=== PATIENT | male | born 1950 | race Caucasian/White ===

== ENCOUNTER 2020-03-02 16:47 | Emergency (ER) | payer OTHER ==
[~2020-03-02] VITALS: Ht 180.3 cm; Wt 99.8 kg
[2020-03-02 17:25] LABS: BASOPHILS ABSOLUTE AUTO 0.09 K/mm3 (0.00-0.23); BASOPHILS PERCENT AUTO 1 % (0-2); EOSINOPHILS PERCENT AUTO 5 % (0-6); Hematocrit 49.9 % (37.0-53.0); Hemoglobin 17.2 g/dL (13.5-17.5); IMMATURE GRAN ABSOLUTE AUTO 0.05 K/mm3 (0.00-0.10); IMMATURE GRAN PERCENT AUTO 1 % (0-1); LYMPHOCYTES ABSOLUTE AUTO 1.55 K/mm3 (0.84-5.20); LYMPHOCYTES PERCENT AUTO 19 % (21-46); MONOCYTES ABSOLUTE AUTO 0.62 K/mm3 (0.16-1.47); MONOCYTES PERCENT AUTO 7 % (4-13); Mean Corpuscular HGB 33.8 pg (26.0-34.0); Mean Corpuscular HGB Conc 34.5 g/dL (31.5-36.5); Mean Corpuscular Volume 98 fL (80-100); Mean Platelet Volume 8.7 fL (9.1-12.4); NEUTROPHILS ABSOLUTE AUTO 5.63 K/mm3 (1.96-9.15); NEUTROPHILS PERCENT AUTO 68 % (41-73); Platelet Count 243 K/mm3 (150-400); RDW Coefficient Variation 12.6 % (11.7-14.2); RDW Standard Deviation 45.6 fL (35.1-46.3); Red Blood Cell Count 5.09 M/mm3 (4.30-5.90); White Blood Cell Count 8.34 K/mm3 (4.00-11.30)
[2020-03-02 17:41] LABS: Alanine Aminotransfer (ALT/SGP 36 U/L (12-78); Albumin, Blood 3.8 g/dL (3.4-5.0); Alk Phos 71 U/L (50-136); Anion Gap 13 mmol/L (6-16); Aspartate Aminotrans (AST/SGOT 27 U/L (12-37); Bilirubin, Total 0.5 mg/dL (0.1-1.0); Blood Urea Nitrogen 13 mg/dL (8-24); Bun/Creatinine Ratio 13.2 (12.0-20.0); CO2, Blood 19 mmol/L (21-32); Calcium, Blood 8.8 mg/dL (8.5-10.1); Chloride, Blood 106 mmol/L (98-108); Creatinine, Blood 0.99 mg/dL (0.60-1.20); Globulin, Blood 3.9 g/dL (2.2-4.0); Glomerular Filtration Rate >60 (60-); Glucose, Blood 116 mg/dL (70-99); Potassium, Blood 3.7 mmol/L (3.5-5.5); Sodium, Blood 138 mmol/L (136-145); Total Protein, Blood 7.7 g/dL (6.4-8.2); Troponin I <0.015 ng/mL (0.000-0.040)
[2020-03-02] MEDS ORDERED: Prednisone20 MG PO (18:15)
== END 2020-03-02 18:55 | disposition home or self-care (01) ==
LOC: ER 16:47
PROVIDERS: Emergency Medicine
DX: R05 Cough (principal); R55 Syncope and collapse; V69.9XXA Occupant (driver) (passenger) of heavy transport vehicle injured in unspecified traffic accident, initial encounter
CPT/HCPCS: 71045; 80053; 83880; 84484; 85025; 93005; 93010; 99284-25

== ENCOUNTER 2020-06-27 07:42 | Day surgery (SDC) | payer OTHER ==
[~2020-06-27] VITALS: Ht 180.3 cm; Wt 96.1 kg
[~2020-06-27 07:42] MED LIST: IBUP200 PO; Loratadine10 MG PO; Prednisone20 MG PO
--- NOTE | 2020-06-27 08:43 | NUR ---
06/27/20 0843 Conner Adam ATTEMPTED IV IN RIGHT AND LEFT HAND AND BOTH BLEW WHEN FLUIDS STARTED. AMARIT STARTED IV IN LEFT FOREARM AND PATIENT TOLERATED WELL.
== END 2020-06-27 14:00 | disposition home or self-care (01) ==
LOC: ORSCSDS 07:42
PROVIDERS: Otolaryngology
PROC: 09BL8ZZ Excision of Nasal Turbinate, Via Natural or Artificial Opening Endoscopic (ICD-10-PCS; principal; 2020-06-27 09:00)
PROC: 099W8ZZ Drainage of Right Sphenoid Sinus, Via Natural or Artificial Opening Endoscopic (ICD-10-PCS; principal; 2020-06-27 09:00)
PROC: 099Q8ZZ Drainage of Right Maxillary Sinus, Via Natural or Artificial Opening Endoscopic (ICD-10-PCS; principal; 2020-06-27 09:00)
PROC: 099R8ZZ Drainage of Left Maxillary Sinus, Via Natural or Artificial Opening Endoscopic (ICD-10-PCS; principal; 2020-06-27 09:00)
PROC: 099X8ZZ Drainage of Left Sphenoid Sinus, Via Natural or Artificial Opening Endoscopic (ICD-10-PCS; principal; 2020-06-27 09:00)
PROC: 099V8ZZ Drainage of Left Ethmoid Sinus, Via Natural or Artificial Opening Endoscopic (ICD-10-PCS; principal; 2020-06-27 09:00)
PROC: 099T8ZZ Drainage of Left Frontal Sinus, Via Natural or Artificial Opening Endoscopic (ICD-10-PCS; principal; 2020-06-27 09:00)
PROC: 099U8ZZ Drainage of Right Ethmoid Sinus, Via Natural or Artificial Opening Endoscopic (ICD-10-PCS; principal; 2020-06-27 09:00)
DX: J32.4 Chronic pansinusitis (principal); J34.2 Deviated nasal septum; J34.3 Hypertrophy of nasal turbinates; J82 Pulmonary eosinophilia, not elsewhere classified; I10 Essential (primary) hypertension; K21.9 Gastro-esophageal reflux disease without esophagitis; E66.9 Obesity, unspecified; Z68.30 Body mass index [BMI] 30.0-30.9, adult
CPT/HCPCS: 88305; 88312; J1100; J1885; J2001; J2370; J2405; J2704; J3010; J7120

== ENCOUNTER 2023-07-30 16:46 | Inpatient (IN) | payer OTHER ==
[~2023-07-30] VITALS: Ht 180.3 cm; Wt 100.0 kg
[~2023-07-30 16:46] MED LIST changes: -Loratadine10 MG PO; +Loratadine10 MG PT
[2023-07-30 18:03] LABS: BASOPHILS ABSOLUTE AUTO 0.06 K/mm3 (0.00-0.23); BASOPHILS PERCENT AUTO 1 % (0-2); EOSINOPHILS PERCENT AUTO 1 % (0-6); Hematocrit 45.6 % (37.0-53.0); IMMATURE GRAN ABSOLUTE AUTO 0.03 K/mm3 (0.00-0.10); IMMATURE GRAN PERCENT AUTO 0 % (0-1); LYMPHOCYTES ABSOLUTE AUTO 1.41 K/mm3 (0.84-5.20); LYMPHOCYTES PERCENT AUTO 13 % (21-46); MONOCYTES ABSOLUTE AUTO 1.02 K/mm3 (0.16-1.47); MONOCYTES PERCENT AUTO 9 % (4-13); Mean Corpuscular HGB 35.5 pg (26.0-34.0); Mean Corpuscular HGB Conc 35.1 g/dL (31.5-36.5); Mean Corpuscular Volume 101 fL (80-100); Mean Platelet Volume 8.7 fL (9.1-12.4); NEUTROPHILS ABSOLUTE AUTO 8.35 K/mm3 (1.96-9.15); NEUTROPHILS PERCENT AUTO 76 % (41-73); Platelet Count 263 K/mm3 (150-400); RDW Coefficient Variation 13.2 % (11.7-14.2); RDW Standard Deviation 48.2 fL (35.1-46.3); Red Blood Cell Count 4.51 M/mm3 (4.30-5.90); White Blood Cell Count 10.97 K/mm3 (4.00-11.30)
[2023-07-30 18:42] LABS: CHOL/HDL RATIO 6.1; Cholesterol 209 mg/dL (50-200); HDL Cholesterol 34 mg/dL (>39); LDL/HDL RATIO 4.2; Low Density Lipoprotein Chol 142 mg/dL (0-110); Triglycerides 164 mg/dL (30-160); Very Low Density Lipoprot Chol 32 mg/dL (6-32)
[2023-07-30 19:45] LABS: Magnesium, Blood 2.7 mg/dL (1.6-2.4)
[2023-07-30 19:48] LABS: Albumin, Blood 3.4 g/dL (3.4-5.0); Albumin/Globulin Ratio 0.8 (0.8-1.8); Bilirubin, Total 1.6 mg/dL (0.1-1.0); Calcium, Blood 9.3 mg/dL (8.5-10.1); Globulin, Blood 4.5 g/dL (2.2-4.0); Total Protein, Blood 7.9 g/dL (6.4-8.2)
[2023-07-30] MEDS ORDERED: FLUTICASONE-SAL12 G1 INH (22:00)
[2023-07-30] MEDS ORDERED: ALBU2.5V5 INH (22:00)
[2023-07-30 23:04] VITALS: BP 166/76
[2023-07-31 04:06] VITALS: BP 146/70
--- NOTE | 2023-07-31 05:57 | NUR ---
SHIFT SUMMARY: NO ACUTE EVENTS SINCE ADMISSION FROM ER AT 2245 LAST NIGHT. A&O X 2, SPEECH SLURRED AND HAS POOR MEMORY. HAS L FACIAL DROOP, R EYE GAZE. 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 L FOOT WEAK PLANTAR- AND DORSIFLEXION, CANNOT LIFT LEG OFF BED. INCONTINENT OF B&B, ATTENDS IN PLACE. NO EVENTS ON TELEMETRY, LEONILA IN 50'S WHEN SLEEPING. DENIED PAIN. MRI SCREENING FORM IN FRONT OF CHART; SINCE PT IS POOR HISTORIAN, DAY SHIFT RN WILL NEED TO CONTACT HIS SISTER TO COMPLETE THE FORM. SLEPT WELL OVERNIGHT.
[2023-07-31 06:41] LABS: Hematocrit 40.4 % (37.0-53.0); Mean Corpuscular HGB 35.3 pg (26.0-34.0); Mean Corpuscular HGB Conc 34.7 g/dL (31.5-36.5); Mean Corpuscular Volume 102 fL (80-100); Mean Platelet Volume 8.6 fL (9.1-12.4); Platelet Count 207 K/mm3 (150-400); RDW Coefficient Variation 13.1 % (11.7-14.2); RDW Standard Deviation 48.1 fL (35.1-46.3); Red Blood Cell Count 3.97 M/mm3 (4.30-5.90); White Blood Cell Count 8.63 K/mm3 (4.00-11.30)
[2023-07-31 07:09] VITALS: BP 160/80
[2023-07-31 07:13] LABS: Bun/Creatinine Ratio 22.2 (12.0-20.0); Creatinine, Blood 0.81 mg/dL (0.60-1.20); Potassium, Blood 3.6 mmol/L (3.5-5.5)
--- NOTE | 2023-07-31 09:06 | NUR ---
NOTE: ATTEMPTED TO CALL SISTERCLIFTON, TO ASSIST WITH THE MRI SCREENING FORM. THE PHONE DID NOT RING AND WENT STRAIGHT TO VOICEMAIL. LEFT MESSAGE AND PHONE NUMBER.
--- NOTE | 2023-07-31 12:36 | NUR ---
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 DR. CONTRERAS NOTIFIED AND NO NEW ORDERS AT THIS TIME.
[2023-07-31 14:44] VITALS: BP 168/73
--- NOTE | 2023-07-31 18:20 | NUR ---
SHIFT SUMMARY PT AOX2, CONFUSED THROUGHOUT THE DAY. PT HAS HAD NO COMPLAINTS. AT TIMES ATTEMPTING TO SLIDE ONE OF HIS LEGS OUT OF THE BED BUT REDIRECTABLE. FAMILY WAS AT THE BS TODAY, PROVIDING FURTHER HISTORY. PT'S BP SLIGHTLY ELEVATED THIS AFTERNOON BUT DR. CONTRERAS WANTS TO MAINTAIN A HIGH BLOOD PRESSURE AT THIS TIME. HE HAS HAD NO COMPLAINTS OF N/V/D/CP. CALL LIGHT WITHIN REACH, BED IN THE LOWEST POSITION. WILL REPORT TO ONCOMING NURSE.
[2023-07-31 19:38] VITALS: BP 158/77
[2023-08-01 02:30] VITALS: BP 160/83
--- NOTE | 2023-08-01 06:13 | NUR ---
SHIFT SUMMARY: NO ACUTE EVENTS. A&O X 1, KNOWS , BUT THINKS HE IS AT HOME. RIGHT GAZE HAS IMPROVED SLIGHTLY. SPEECH IS SLURRED AND HE HAS L SIDE NEGLECT. NO EVENTS ON TELEMETRY, SR 60'S WITH 1ST DEGREE BLOCK. LUNG SOUNDS DIM THROUGHOUT. INCONTINENT, WEARING ATTENDS. LBM UNKNOWN; MAY NEED BOWEL MEDS BEFORE TRANSFERRING TO SNF FOR REHAB.
[2023-08-01 07:45] VITALS: BP 162/72
[2023-08-01 14:56] VITALS: BP 145/63
--- NOTE | 2023-08-01 18:09 | NUR ---
THE PATIENT WAS SLEEPING MOST OF THE SHIFT, AROUSABLE, BUT VERY SLEEPY. THE PATIENT'S FAMILY WAS IN THE ROOM OFF AND ON, THROUGHOUT THE DAY. THE PATIENT IS A&O TO SELF AND SOME SURROUNDINGS. THE PATIENT LEFT SIDE IS WEAK AND HE WAS ABLE TO MOVE HIS LEFT LEG ON COMMAND. THE PATIENT REFUSED LUNCH AND STATED THAT HE WOULD EAT DINNER. I WILL CONTINUE TO MONITOR HIM.
[2023-08-01 19:18] VITALS: BP 132/65
[2023-08-02 03:27] VITALS: BP 146/99
--- NOTE | 2023-08-02 05:24 | NUR ---
SHIFT SUMMARY NOC PT A/O TO SELF AND FAMILY. PLESANTLY CONFUSED AND COOPERATIVE WITH CARE. WHEN ATTEMPTING TO GIVE PT HS RX, PT WAS UNABLE TO SWALLOW PILL, AND RX WAS NOT GIVEN DUE TO HIGH ASPIRATION/CHOKING RISK. PT WILL NEED SECOND ST EVALUATION TO ASSESS PT SWALLOW REFLEX. PT HAS SEVERE L SIDE DEFICIT FROM ACUTE CVA AND WAS UNABLE TO SQUEEZE FINGERS AND LIFT LLE. PT HAS CONDOM CATHETER IN PLACE FOR INCONTINENCE. PT IS ON TELE RUNNING SINUS RHYTHM @ 80 BPM. PT IS CURRENTLY RESTING WITH BED IN LOWEST POSITION, AND CALL LIGHT WITHIN REACH.
[2023-08-02 06:09] LABS: HEMOGLOBIN A1C 5.4 % (4.8-5.6)
[2023-08-02 08:13] VITALS: BP 138/68
[2023-08-02 15:51] VITALS: BP 110/76
--- NOTE | 2023-08-02 17:35 | NUR ---
THE PATIENT WAS TALKING WITH THE FAMILY AT THE START OF THE SHIFT, WHEN HIS DOCTOR ARRIVED HE WAS VERY HARD TO WAKE UP AND NOT RESPONDING. THE DOCTOR ORDERED A CT OF HIS HEAD AND WHEN HE RETURNED HE WAS MORE AWKE AND I CALLED DOCTOR TO TALK WITH HIM. THE PATIENT NEEDS A SWOLLOW E-NAVJOT BADLY. THE PATIENT IS SLEEPING AT THIS TIME, I WILL CONTINUE TO MONITOR.
[2023-08-02 19:20] VITALS: BP 117/81
[2023-08-03 03:00] VITALS: BP 129/67
--- NOTE | 2023-08-03 04:51 | NUR ---
SHIFT SUMMARY NOC PT A/O TO SELF AND FAMILY. PLEASANTLY CONFUSED AND COOPERATIVE WITH CARE. NO ACUTE CHANGES TO REPORT. PT HAS 1L NS X 1 INFUSING @ 75 ML/HR FOR HYDRATION. PT HAS ST REEVALUATION TODAY TO DETERMINE IF NG TUBE PLACEMENT IS INDICATED. PT WAS UNABLE TO SWALLOW HS RX AND IT WAS NOT GIVEN FOR SAFETY CONCERNS. PT HAS BEEN INCONTINENT OF URINE X 2. PT ON TELE RUNNING SR 1DHB @ 69 BPM. PT IS CURRENTLY RESTING WITH BED IN LOWEST POSITION, AND CALL LIGHT WITHIN REACH.
[2023-08-03 05:17] LABS: BASOPHILS ABSOLUTE AUTO 0.07 K/mm3 (0.00-0.23); BASOPHILS PERCENT AUTO 1 % (0-2); EOSINOPHILS ABSOLUTE AUTO 0.32 K/mm3 (0.00-0.68); EOSINOPHILS PERCENT AUTO 3 % (0-6); Hematocrit 42.5 % (37.0-53.0); Hemoglobin 15.2 g/dL (13.5-17.5); IMMATURE GRAN ABSOLUTE AUTO 0.04 K/mm3 (0.00-0.10); IMMATURE GRAN PERCENT AUTO 0 % (0-1); LYMPHOCYTES ABSOLUTE AUTO 1.35 K/mm3 (0.84-5.20); LYMPHOCYTES PERCENT AUTO 14 % (21-46); MONOCYTES ABSOLUTE AUTO 0.91 K/mm3 (0.16-1.47); MONOCYTES PERCENT AUTO 10 % (4-13); Mean Corpuscular HGB 35.3 pg (26.0-34.0); Mean Corpuscular HGB Conc 35.8 g/dL (31.5-36.5); Mean Corpuscular Volume 99 fL (80-100); Mean Platelet Volume 9.2 fL (9.1-12.4); NEUTROPHILS ABSOLUTE AUTO 6.69 K/mm3 (1.96-9.15); NEUTROPHILS PERCENT AUTO 71 % (41-73); Platelet Count 256 K/mm3 (150-400); RDW Coefficient Variation 12.7 % (11.7-14.2); RDW Standard Deviation 45.9 fL (35.1-46.3); White Blood Cell Count 9.38 K/mm3 (4.00-11.30)
[2023-08-03 05:59] LABS: Bun/Creatinine Ratio 26.4 (12.0-20.0); Calcium, Blood 8.7 mg/dL (8.5-10.1); Creatinine, Blood 0.83 mg/dL (0.60-1.20); Potassium, Blood 3.4 mmol/L (3.5-5.5)
[2023-08-03 07:15] VITALS: BP 136/61
[2023-08-03 16:06] VITALS: BP 112/65
--- NOTE | 2023-08-03 17:43 | NUR ---
SHIFT SUMMARY TASHIA GRANT PLACED THIS SHIFT WITH NO COMPLICATIONS, X RAY VERIFICATION. TOLERATING 15ML/HOUR CONTINUOUS FEED. SUCTION SET UP AND FAMILY EDUCATED ON SAFE USE. FAMILY HAS PREFERENCE FOR PLACEMENT [facility], PASSED ON TO CHARGES TO PASS TO . HOB >30, ASSISTING WITH FREQUENT POSITIONING. FAMILY EDUCATED ON TUBE PLACEMENT, FORMULA FEEDINGS, ASPIRATION RISKS AND PRECAUTIONS, PRESSURE INJURY, STROKE, ANTICOAGULANTS. WILL CONTINUE TO MONITOR.
[2023-08-03 19:32] VITALS: BP 134/88
--- NOTE | 2023-08-04 00:36 | NUR ---
SPOKE WITH DR CONTRERAS REGARDING CXR TO VERIFY DOBHOFF TUBE PLACEMENT, HE REVIEWED THE CXR AND STATED THAT THE PLACEMENT LOOKS GOOD.
[2023-08-04 02:40] VITALS: BP 120/81
[2023-08-04 04:31] LABS: BASOPHILS ABSOLUTE AUTO 0.09 K/mm3 (0.00-0.23); BASOPHILS PERCENT AUTO 1 % (0-2); EOSINOPHILS ABSOLUTE AUTO 0.44 K/mm3 (0.00-0.68); EOSINOPHILS PERCENT AUTO 5 % (0-6); Hematocrit 43.4 % (37.0-53.0); Hemoglobin 15.4 g/dL (13.5-17.5); IMMATURE GRAN ABSOLUTE AUTO 0.05 K/mm3 (0.00-0.10); IMMATURE GRAN PERCENT AUTO 1 % (0-1); LYMPHOCYTES ABSOLUTE AUTO 1.37 K/mm3 (0.84-5.20); LYMPHOCYTES PERCENT AUTO 14 % (21-46); MONOCYTES ABSOLUTE AUTO 1.07 K/mm3 (0.16-1.47); MONOCYTES PERCENT AUTO 11 % (4-13); Mean Corpuscular HGB Conc 35.5 g/dL (31.5-36.5); Mean Corpuscular Volume 99 fL (80-100); Mean Platelet Volume 9.1 fL (9.1-12.4); NEUTROPHILS ABSOLUTE AUTO 6.63 K/mm3 (1.96-9.15); NEUTROPHILS PERCENT AUTO 69 % (41-73); Platelet Count 299 K/mm3 (150-400); RDW Coefficient Variation 12.6 % (11.7-14.2); RDW Standard Deviation 45.8 fL (35.1-46.3); White Blood Cell Count 9.65 K/mm3 (4.00-11.30)
[2023-08-04 05:01] LABS: Bun/Creatinine Ratio 33.5 (12.0-20.0); Calcium, Blood 9.2 mg/dL (8.5-10.1); Creatinine, Blood 0.9 mg/dL (0.60-1.20); Potassium, Blood 3.8 mmol/L (3.5-5.5)
[2023-08-04 07:14] VITALS: BP 119/72
[2023-08-04 15:53] VITALS: BP 135/70
--- NOTE | 2023-08-04 18:27 | NUR ---
SHIFT SUMMARY PT A&OX3 AND PLEASANT. PT VERY SLEEPY AND ONLY ALERT TO SELF AT START OF SHIFT. PT MORE ALERT AND ORIENTED DAY WENT ON. PT STILL HAS SIGNIFICANT LEFT SIDED DEFICITS BUT WAS ABLE TO LIFT HIS LEG SLIGHTLY TODAY. PT ABLE TO WORK WITH PHYSICAL THERAPY AND OT TODAY AND SAT UP AT EDGE OF BED. SPEACH THERAPY WORKED WITH PT ALSO. SEE ST NOTES. PT IS TO GET PEG TUBE PLACED TOMORROW. TUBE FEEDINGS SHOULD BE STOPPED AT [address] ROUSE AWARE AND WILL SEE PT AND FAMILY IN THE MORNING. FAMILY AT BEDSIDE T/O DAY. BED IN LOWEST POSITION AND CALL LIGHT IN REACH.
[2023-08-04 19:46] VITALS: BP 125/74
[2023-08-05] VITALS (10 sets, daily range): BP systolic 100–126; BP diastolic 57–86
--- NOTE | 2023-08-05 03:59 | NUR ---
SHIFT SUMMARY 72 YR M ADMITTED ON 07/30/23 FOR ACUTE CVA. FULL CODE. NO ACUTE CHANGES THIS SHIFT. TPN RATE INCREASED TO 81 ML/H @ 2330 AND STOPPED @ 0330. PT HAS SLEPT FOR MOST OF THIS SHIFT BUT IS ABLE TO COMMUNICATE WHEN HE IS AWAKE. HE IS A VERY PLEASANT MAN AND IS COOPERATIVE. HE IS INCONTINENT AT THIS TIME AND TOLERATES BRIEF CHANGES WELL. FAMILY WAS IN ROOM FOR FIRST PART OF THE SHIFT AND WILL BE BACK IN THE MORNING. PLAN IS FOR PEG TUBE PLACEMENT IN THE A.M.
[2023-08-05 05:13] LABS: BASOPHILS PERCENT AUTO 1 % (0-2); EOSINOPHILS PERCENT AUTO 6 % (0-6); Hematocrit 41.6 % (37.0-53.0); Hemoglobin 14.9 g/dL (13.5-17.5); IMMATURE GRAN ABSOLUTE AUTO 0.04 K/mm3 (0.00-0.10); IMMATURE GRAN PERCENT AUTO 0 % (0-1); LYMPHOCYTES ABSOLUTE AUTO 1.44 K/mm3 (0.84-5.20); LYMPHOCYTES PERCENT AUTO 14 % (21-46); MONOCYTES ABSOLUTE AUTO 1.06 K/mm3 (0.16-1.47); MONOCYTES PERCENT AUTO 11 % (4-13); Mean Corpuscular HGB 35.1 pg (26.0-34.0); Mean Corpuscular HGB Conc 35.8 g/dL (31.5-36.5); Mean Corpuscular Volume 98 fL (80-100); Mean Platelet Volume 9.5 fL (9.1-12.4); NEUTROPHILS ABSOLUTE AUTO 6.81 K/mm3 (1.96-9.15); NEUTROPHILS PERCENT AUTO 68 % (41-73); Platelet Count 320 K/mm3 (150-400); RDW Coefficient Variation 12.5 % (11.7-14.2); RDW Standard Deviation 45.1 fL (35.1-46.3); Red Blood Cell Count 4.24 M/mm3 (4.30-5.90); White Blood Cell Count 10.05 K/mm3 (4.00-11.30)
[2023-08-05 05:52] LABS: Bun/Creatinine Ratio 37.3 (12.0-20.0); Calcium, Blood 9.4 mg/dL (8.5-10.1); Creatinine, Blood 0.94 mg/dL (0.60-1.20); Potassium, Blood 3.6 mmol/L (3.5-5.5)
--- NOTE | 2023-08-05 11:49 | NUR ---
08/05/23 1149 Osmin Pack History, Chart, Medications and Allergies reviewed before start of procedure.MONITOR INTACT WITH CONTINUOUS PULSE OXIMETRY, CONTINUOUS END TITAL CO2, AND INTERMITTENT BLOOD PRESSURE.3-LEAD EKG REVIEWED WITH PHYSICIAN PRIOR TO START OF PROCEDURE.O2 VIA POM INTACT THROUGHOUT SEDATION/PROCEDURE.See Anesthesia record.
[2023-08-06 01:59] VITALS: BP 112/67
[2023-08-06 05:07] LABS: BASOPHILS ABSOLUTE AUTO 0.09 K/mm3 (0.00-0.23); BASOPHILS PERCENT AUTO 1 % (0-2); EOSINOPHILS ABSOLUTE AUTO 0.44 K/mm3 (0.00-0.68); EOSINOPHILS PERCENT AUTO 4 % (0-6); Hematocrit 43.3 % (37.0-53.0); Hemoglobin 15.2 g/dL (13.5-17.5); IMMATURE GRAN ABSOLUTE AUTO 0.05 K/mm3 (0.00-0.10); IMMATURE GRAN PERCENT AUTO 0 % (0-1); LYMPHOCYTES ABSOLUTE AUTO 1.32 K/mm3 (0.84-5.20); LYMPHOCYTES PERCENT AUTO 12 % (21-46); MONOCYTES ABSOLUTE AUTO 1.09 K/mm3 (0.16-1.47); MONOCYTES PERCENT AUTO 10 % (4-13); Mean Corpuscular HGB 35.1 pg (26.0-34.0); Mean Corpuscular HGB Conc 35.1 g/dL (31.5-36.5); Mean Corpuscular Volume 100 fL (80-100); Mean Platelet Volume 9.4 fL (9.1-12.4); NEUTROPHILS ABSOLUTE AUTO 8.29 K/mm3 (1.96-9.15); NEUTROPHILS PERCENT AUTO 74 % (41-73); Platelet Count 334 K/mm3 (150-400); RDW Coefficient Variation 12.5 % (11.7-14.2); RDW Standard Deviation 45.6 fL (35.1-46.3); Red Blood Cell Count 4.33 M/mm3 (4.30-5.90); White Blood Cell Count 11.28 K/mm3 (4.00-11.30)
[2023-08-06 05:35] LABS: Albumin, Blood 2.8 g/dL (3.4-5.0); Albumin/Globulin Ratio 0.5 (0.8-1.8); Calcium, Blood 9.4 mg/dL (8.5-10.1); Creatinine, Blood 1.03 mg/dL (0.60-1.20); Total Protein, Blood 8.8 g/dL (6.4-8.2)
--- NOTE | 2023-08-06 06:13 | NUR ---
PT LETHARGIC AT START OF SHIFT, AWAKENS TO VOICE. IV DILAUDID GIVEN PER REPORT FOR PAIN. PEG TUBE PLACED YESTERDAY. PT MORE AWAKE SHIFT WENT ON, ABLE TO ANSWER ORIENTATION QUESTIONS APPROPRIATELY. ABLE TO MAKE SOME NEEDS KNOWN, LIMITED MOBILITY OF L SIDE DUE TO CVA. R GAZE DEVIATION, L PO DROOP. FOAM BOOTIES PLACED TO BILATERAL LE TO PREVENT FOOT DROP. PT DENIES PAIN THIS AM. VSS PER PT TREND. PEG TUBE SITE WITH SCANT SS DRAINAGE, NO TF RUNNING AT THIS TIME. WATER FLUSHES PER PROVIDER ORDER. SR ON TELE.
[2023-08-06 07:29] VITALS: BP 113/70
[2023-08-06 15:19] VITALS: BP 112/57
[2023-08-06 19:51] VITALS: BP 126/65
--- NOTE | 2023-08-06 20:00 | NUR ---
SUMMARY- PT A/O X2, EXPRESIVE APHASIA, L SIDE NEGLECT. BEDREST, DEPENDANT IN ADL'S. USING CONDOM CATH. ROUTINE TURNS. SKIN REMAINS INTACT. PEG TUBE PLACED 10/10, ABD SOFT, MILDLY TENDER AT PEG SITE. BT NORMOACTIVE. STARTED BOLUS TUBE FEEDS, FIRST AT 1415 ONE BOX PLUS FLUSH, 2ND BOLUS AT 1800, ONE BOX PLUS FLUSH. HOB ELEVATED T/O FEEDS AND POST FEEDS. PT DENIES NAUSEA. MULT FAMILY IN T/O THE DAY INVOLVED IN CARE, PLAN FOR [facility]. PT WORKED WITH PT/OT/ST TODAY. SAT AT EDGE OF BED WITHA ASSIST. REPORTED TO ROSITA ORTEGA
[2023-08-07 04:00] VITALS: BP 122/63
[2023-08-07 04:41] LABS: BASOPHILS ABSOLUTE AUTO 0.09 K/mm3 (0.00-0.23); BASOPHILS PERCENT AUTO 1 % (0-2); EOSINOPHILS ABSOLUTE AUTO 0.52 K/mm3 (0.00-0.68); EOSINOPHILS PERCENT AUTO 5 % (0-6); Hematocrit 39.8 % (37.0-53.0); IMMATURE GRAN ABSOLUTE AUTO 0.07 K/mm3 (0.00-0.10); IMMATURE GRAN PERCENT AUTO 1 % (0-1); LYMPHOCYTES ABSOLUTE AUTO 1.56 K/mm3 (0.84-5.20); LYMPHOCYTES PERCENT AUTO 15 % (21-46); MONOCYTES ABSOLUTE AUTO 1.15 K/mm3 (0.16-1.47); MONOCYTES PERCENT AUTO 11 % (4-13); Mean Corpuscular HGB Conc 35.2 g/dL (31.5-36.5); Mean Corpuscular Volume 100 fL (80-100); Mean Platelet Volume 9.3 fL (9.1-12.4); NEUTROPHILS PERCENT AUTO 67 % (41-73); Platelet Count 319 K/mm3 (150-400); RDW Coefficient Variation 12.4 % (11.7-14.2); RDW Standard Deviation 45.3 fL (35.1-46.3); White Blood Cell Count 10.39 K/mm3 (4.00-11.30)
--- NOTE | 2023-08-07 05:03 | NUR ---
SHIFT SUMMARY A/OX2-3, EXPRESSIVE APHASIA, SLOW TO RESPOND. LEFT SIDE HEMIPLEGIA/NEGLECT. BEDREST, DEPENDENT IN ADL'S. CONDOM CATH OVERNIGHT, ROUTINE TURNS, SKIN REMAINS INTACT. PEG TUBE WAS PLACED 08/05 TUBE FEEDING STARTED YESTERDAY VIA BOLUS. ONE FEEDING THIS SHIFT ONLY TWO BOLUS FEEDINGS GIVEN DURING DAY SHIFT. 240 ML OF FEED OVER 15 MINUTES WITH 100 ML WATER FLUSH BEFORE AND AFTER. TOLERATED WELL. PT DENIED NAUSEA OR DISCOMFORT.
[2023-08-07 05:14] LABS: Bun/Creatinine Ratio 38.8 (12.0-20.0); Creatinine, Blood 0.95 mg/dL (0.60-1.20)
[2023-08-07 07:12] VITALS: BP 101/66
[2023-08-07 15:40] VITALS: BP 100/61
--- NOTE | 2023-08-07 19:45 | NUR ---
NOTE ALERT AND ORIENTED X2. FAMILY HAVE CONSULTED AN CUP TRIMMING MACHINE OPERATOR FOR POWER OF HEALTH/FINANCE PAPER WORK. PT UP TO RECLINER WITH CEILING LIDT. TOLERATED WELL. SAT UP IN RECLINER FOR 2 HOURS. THEN HE STARTED SCOOTCHING HIMSELF OUT. RETURNED TO BED WITH LIFT. CONDOM CATHETER ON DRAINING RAHEEM URINE. NO BM. PASSING FLATUS. PG TUBE CARE AND DRESSING CHANGED. SPLIT SPONGE 1 LAYER USED. BOLUS FEEDING OF JEVITY 1.5-355 ML/100ML OF WATER FOR 1200 AND 1800. BOLUS BY GRAVITY FEEDING HE WILL DEVELOP HICCUPS ABOUT HALF WAY THROUGH. NO GASTRIC RESIDUALS NOTED FOR 1200 OR 1800 BOLUSES. PT DENIED PAIN OR DISCOMFORT. PLACED A MAHMOOD BOOT ON HIS LEFT FOOT WITH P/T HELP TO PREVENT FOOT DROP. PILLOW UNDER HIS LEFT KNEE TO PREVENT HYPER EXTENDING HIS KNEE. HOB 30 DEGREES OR HIGHER FOR ASPIRATION PRECAUTIONS. WHILE UP IN RECLINER PT SET UP FOR BRUSHING HIS TEETH. HE WAS ABLE TO DO HIS OWN BRUSHING LEFT AND RIGHT SIDE OF HIS MOUTH. CONTINUE POC.
[2023-08-07 20:00] VITALS: BP 123/75
[2023-08-08 01:55] VITALS: BP 115/71
--- NOTE | 2023-08-08 03:39 | NUR ---
SHIFT SUMMARY. SHIFT HAS BEEN MOSTLY UNREMARKABLE. PT HAS BEEN PLEASANT, COOPERATIVE WITH CARE. SOMEWHAT FRUSTRATED WITH CURRENT SITUATION AND CONDITION LEADING TO ADMISSION. DISCUSSION WITH FAMILY REGARDING APPREHENSION WITH PRESUMED [place] PLACEMENT. REASSURED WITH PERSONAL ANECDOTE ON [place] QUALITY AND EDUCATED ON FACILITY. FAMILY AND PT FELT REASSURED BY THIS. PT HAS CONTINUED TO SAT WELL ON ROOM AIR. NO COMPLAINTS OF PAIN. DOES NOT USE CALL LIGHT THUS FAR DESPITE EDUCATION. ABLE TO MAKE NEEDS KNOWN. BEDREST AND NPO AT THIS TIME. 2100 MEDICATIONS GIVEN WITHOUT DIFFICULTY THROUGH PEG TUBE. BED LOCKED IN LOWEST POSITION.
[2023-08-08 05:37] LABS: BASOPHILS ABSOLUTE AUTO 0.12 K/mm3 (0.00-0.23); BASOPHILS PERCENT AUTO 1 % (0-2); EOSINOPHILS ABSOLUTE AUTO 0.81 K/mm3 (0.00-0.68); EOSINOPHILS PERCENT AUTO 7 % (0-6); Hemoglobin 14.5 g/dL (13.5-17.5); IMMATURE GRAN ABSOLUTE AUTO 0.08 K/mm3 (0.00-0.10); IMMATURE GRAN PERCENT AUTO 1 % (0-1); LYMPHOCYTES ABSOLUTE AUTO 1.98 K/mm3 (0.84-5.20); LYMPHOCYTES PERCENT AUTO 17 % (21-46); MONOCYTES ABSOLUTE AUTO 1.12 K/mm3 (0.16-1.47); MONOCYTES PERCENT AUTO 10 % (4-13); Mean Corpuscular HGB 35.2 pg (26.0-34.0); Mean Corpuscular HGB Conc 35.4 g/dL (31.5-36.5); Mean Corpuscular Volume 100 fL (80-100); Mean Platelet Volume 9.4 fL (9.1-12.4); NEUTROPHILS ABSOLUTE AUTO 7.36 K/mm3 (1.96-9.15); NEUTROPHILS PERCENT AUTO 64 % (41-73); Platelet Count 350 K/mm3 (150-400); RDW Coefficient Variation 12.6 % (11.7-14.2); RDW Standard Deviation 45.6 fL (35.1-46.3); Red Blood Cell Count 4.12 M/mm3 (4.30-5.90); White Blood Cell Count 11.47 K/mm3 (4.00-11.30)
[2023-08-08 06:17] LABS: Bun/Creatinine Ratio 32.5 (12.0-20.0); Calcium, Blood 9.2 mg/dL (8.5-10.1); Creatinine, Blood 0.92 mg/dL (0.60-1.20)
[2023-08-08 07:58] VITALS: BP 120/65
--- NOTE | 2023-08-08 13:30 | NUR ---
Been speaking to his daughter the past few days. Review of his needs and his fainaces and the struggles they have in making a plan for his care. their are fianacial concerns. Pt worked with pt today and tired no overt pain or dyspnea. Pt complains of a headache and increased fatigue from therpay. Will continue to support daughter and monitor his symptoms.
--- NOTE | 2023-08-08 14:33 | NUR ---
ATTEMPTED BOLUS TUBE FEEDING AT 1420. CHECKED RESIDUAL, FOUND TO HAVE 240 ML. REINSTILLED RESIDUAL AND GAVE 40 ML WATER FLUSH TO CLEAR TUBE. EDUCATED FAMILY ABOUT RATIONALE FOR THIS, VERBALIZED UNDERSTANDING. LEFT MESSAGE WITH TECHNICAL TRAINING SPECIALIST OFFICE.
[2023-08-08 16:53] LABS: Source, Urine Condom Cath
[2023-08-08 17:02] LABS: Appearance, Urine Clear (Clear); Blood, Urine Neg (Neg); Color, Urine Amber (P-Yellow); Glucose Qualitative, Urine Neg (Neg); Ketones, Urine Neg (Neg); Leukocyte Esterase, Urine Neg (Neg); Nitrite, Urine Neg (Neg); Protein, Urine 1+ (Neg); Specific Gravity, Urine 1.015 (1.003-1.022); Urobilinogen, Urine 4+ (Normal)
[2023-08-08 17:05] VITALS: BP 114/70
[2023-08-08 17:49] LABS: Bilirubin, Urine 1+ (Neg)
[2023-08-08 19:25] VITALS: BP 141/69
--- NOTE | 2023-08-08 19:58 | NUR ---
SHIFT SUMMARY: TF RESIDUAL > 200 ML BEFORE NOON FEEDING; RE-INSTILLED AND HELD NOON FEEDING, LEFT MESSAGE FOR CARE COORDINATION MANAGER. TF RESIDUAL BEFORE 1600 WAS 80 ML, RE-INSTILLED AND GAVE SCHEDULED FEEDING. APPROX 1 HOUR LATER, PATIENT VOMITED WHAT APPEARED TO BE ALL OR MOST OF THE 1600 FEEDING. ATTEMPTED TO CONTACT HOSPITALIST BLANKET CUTTER HAND BUT NO ANSWER, DID NOT LEAVE VM; ENDORSED TO ONCOMING RN AND INCOMING INSPECTOR Mina TODD. PT COUGHED FOR SEVERAL MINUTES AFTER BUT COUGHING RESOLVED SPONTANEOUSLY. LETHARGIC AT START OF SHIFT, BUT AFTER NAPPING THIS AFTERNOON WAS MORE ALERT THIS EVENING. TELEMETRY D/C'D. FINALLY HAD 2 BM'S THIS SHIFT, ONE LARGE AND ONE SMALL, VERY LOOSE. URINE IS RAHEEM IN COLOR AND HAS BRIAN SEDIMENT IN COLLECTION BAG; UA SENT, SHOWS ELEVATED BILIRUBIN. FAMILY AT BEDSIDE ALL DAY. THE HOPEFUL PLAN IS D/C TO [facility] FOR REHAB ON FRIDAY.
--- NOTE | 2023-08-08 20:25 | NUR ---
CALLED HOSPITALIST WILEY TO REQUEST ZOFRAN PRN DUE TO PT VOMITING AFTER TUBE FEEDING EARLY THIS MORNING. ACQUIRED AND ENTERED ORDER FROM WILEY. NOTIFICATION UPON ENTERING ORDER THAT THERE WAS A CONTRAINDICATION FOR QT PROLONGING AGENTS. CALLED TO DISCUSS WITH PHARMACY. BRIEFLY DISCUSSED MED AND HEALTH HX WITH PHARMACIST. NO NEED FOR CONCERN AT THIS TIME, SAFE TO ADMINISTER.
[2023-08-09 02:31] VITALS: BP 118/68
--- NOTE | 2023-08-09 03:50 | NUR ---
SHIFT SUMMARY. SHIFT HAS BEEN MOSTLY UNREMARKABLE. PER SHIFT REPORT, PT VOMITED A LARGE UNMEASURED AMOUNT OF EMESIS RIGHT BEFORE SHIFT CHANGE AND RIGHT AFTER A TUBE FEEDING. HELD FINAL TUBE FEEDING OF DAY DUE TO THIS. CHECKED RESIDUAL FLUID BEFORE ADMINISTERING 2100 MEDICATIONS AND WAS ONLY ABLE TO WITHDRAW ~150 MLS, ADMINISTERED SCHEDULED 2100 MEDICATIONS ALONG WITH IV ZOFRAN AND PT HASNOT HAD ANY NAUSEA OR VOMITING SINCE. PT HAS SLEPT COMFORTABLY THROUGH MOST OF NIGHT AFTER REPORTED BUSY DAY ON DAY SHIFT YESTERDAY. PT REMAINS SOMEWHAT WITHDRAWN BUT FAMILY IS AT BEDSIDE MORE OFTEN THAN NOT WHICH HELPS TO LIFT SPIRITS. DOES NOT USE CALL LIGHT DESPITE EDUCATION BUT IS ABLE TO MAKE NEEDS KNOWN. CONDOM CATH IN PLACE AND FUNCTIONING WELL. NO BM THUS FAR THIS SHIFT. BED LOCKED IN LOWEST POSITION. CALL LIGHT LEFT WITHIN REACH.
[2023-08-09 04:45] LABS: BASOPHILS ABSOLUTE AUTO 0.11 K/mm3 (0.00-0.23); BASOPHILS PERCENT AUTO 1 % (0-2); EOSINOPHILS ABSOLUTE AUTO 0.74 K/mm3 (0.00-0.68); EOSINOPHILS PERCENT AUTO 7 % (0-6); Hematocrit 38.7 % (37.0-53.0); Hemoglobin 13.7 g/dL (13.5-17.5); IMMATURE GRAN ABSOLUTE AUTO 0.09 K/mm3 (0.00-0.10); IMMATURE GRAN PERCENT AUTO 1 % (0-1); LYMPHOCYTES ABSOLUTE AUTO 1.64 K/mm3 (0.84-5.20); LYMPHOCYTES PERCENT AUTO 16 % (21-46); MONOCYTES ABSOLUTE AUTO 0.98 K/mm3 (0.16-1.47); MONOCYTES PERCENT AUTO 10 % (4-13); Mean Corpuscular HGB 35.3 pg (26.0-34.0); Mean Corpuscular HGB Conc 35.4 g/dL (31.5-36.5); Mean Corpuscular Volume 100 fL (80-100); Mean Platelet Volume 9.2 fL (9.1-12.4); NEUTROPHILS ABSOLUTE AUTO 6.42 K/mm3 (1.96-9.15); NEUTROPHILS PERCENT AUTO 64 % (41-73); Platelet Count 356 K/mm3 (150-400); RDW Coefficient Variation 12.5 % (11.7-14.2); RDW Standard Deviation 45.1 fL (35.1-46.3); Red Blood Cell Count 3.88 M/mm3 (4.30-5.90); White Blood Cell Count 9.98 K/mm3 (4.00-11.30)
[2023-08-09 05:12] LABS: Bun/Creatinine Ratio 30.2 (12.0-20.0); Calcium, Blood 8.9 mg/dL (8.5-10.1); Creatinine, Blood 1.06 mg/dL (0.60-1.20); Potassium, Blood 3.8 mmol/L (3.5-5.5)
[2023-08-09 07:06] VITALS: BP 116/63
--- NOTE | 2023-08-09 08:36 | NUR ---
ASSUMED CARE: REPORT RECIEVED FROM CIARA ORTEGA. PT RESTING QUIETLY IN BED. NO ACUTE NEEDS OR CONCERNS NOTED AT THIS TIME.
--- NOTE | 2023-08-09 09:48 | NUR ---
TRENCHER DRIVER GOT PT UP TO CHAIR. PT DECLINED BREAKFAST. PHYSICAL THERAPY AT BEDSIDE. WILL ADMINISTER MEDS AND TUBE FEED WHEN THERAPY COMPLETE.
--- NOTE | 2023-08-09 11:21 | NUR ---
BILINGUAL RESEARCH INTERVIEWER STATED THAT DR COLLINS DOES NOT WISH TO DC PT TODAY UNTIL TF IS FINE TUNED FOR PT'S TOLERANCE. THIS HAS BEEN RELAYED TO PT'S FAMILY AND THEY ARE IN AGREEMENT.
--- NOTE | 2023-08-09 12:25 | NUR ---
PT RESTING IN BED, SNORING. FAMILY REQUESTS THAT RN WAIT TO ADMINISTER AFTERNOON FEEDING UNTIL PT AWAKES AND ATTEMPTS TO EAT LUNCH TRAY. RETAIL SALES TEAMMATE AWARE
[2023-08-09 15:43] VITALS: BP 97/58
--- NOTE | 2023-08-09 17:47 | NUR ---
SHIFT SUMMARY: PT HAS NOT EATEN ANY OF HIS MEALS SO FAR THIS SHIFT. HAS TOLERATED 2 TUBE FEEDS SO FAR WITH 60CC RESIDUAL. FAMILY REQUESTED TO WAIT ON TF UNTIL AFTER PT HAS A CHANCE TO EAT MEAL TRAY BUT SO FAR, PT HAS BEEN TOO TIRED OR HAD NO APPETITE TO EAT. GIVING PT OPPORTUNITY TO EAT DINNER AT THIS TIME BEFORE DINNER FEEDING PROVIDED. FAMILY AT BEDSIDE T/O DAY. NO ACUTE NEEDS OR CONCERNS AT THIS TIME.
[2023-08-09 19:11] VITALS: BP 105/63
[2023-08-10 04:00] VITALS: BP 118/73
[2023-08-10 07:20] VITALS: BP 120/68
--- NOTE | 2023-08-10 08:34 | NUR ---
SHIFT SUMMARY PT ABLE TO TOLERATE PUREE DIET WITH MEDS WITH APPLE SAUCE AND SIPS OF WATER PER DIET ORDERS. TOLERATED TUBE FEEDING WITH MINIMAL RESIDUAL. CONDOM CATH REPLACED. LEFT SIDE WEAKNESS. ABLE TO LIFT LEG WITH DROP. CALM/COOPERATIVE AND FOLLOWS COMMANDS.
--- NOTE | 2023-08-10 18:06 | NUR ---
NO ACUTE CHANGES. PT IS REPOSTITIONED EVERY COUPLE HOURS.PT IS INCONTENT AND DOES NOT KNOW WHEN HE NEEDS CHANGED. PT TALKING AND PLEASANT, TRYING TO HELP MUCH HE CAN. SLEEP VERY HARD AT START OF SHIFT WAITED AND TRIED TO GET PT TO EAT. PT REFUSED. PT SEEMS TO BE DOING BETTER WITH JUST 237MLS OF HIS PEG TUBE FEEDING ALONG WITH 200 MLS OF WATER. NO RESIDUALS OR NAUSEA TODAY. WILL CONTINUE TO MONITOR.
[2023-08-10 19:52] VITALS: BP 97/81
[2023-08-11 04:34] VITALS: BP 112/62
[2023-08-11 07:52] VITALS: BP 109/84
[2023-08-11 13:30] LABS: SARS-Cov-2 (COVID-19) PCR, MMC NEGATIVE (NEGATIVE)
[2023-08-11] MEDS ORDERED: DULERA 100 MCG/13 GM INH (16:20)
[2023-08-11] MEDS ORDERED: ACET325UDC PT (16:24)
[2023-08-11] MEDS ORDERED: AMOXICILLI250 MG/51 PO (16:26)
[2023-08-11] MEDS ORDERED: ASPI81CH PT (16:26)
[2023-08-11] MEDS ORDERED: LEVFLO500 PT (16:27)
[2023-08-11] MEDS ORDERED: CLOP75 PT (16:27)
[2023-08-11] MEDS ORDERED: ENOX40I SC (16:56)
[2023-08-11] MEDS ORDERED: Docusate S50 MG/5 ML PT (16:56)
[2023-08-11] MEDS ORDERED: HYDCHL25 PT (16:57)
[2023-08-11] MEDS ORDERED: Prinivil10 MG PT (16:57)
[2023-08-11] MEDS ORDERED: SENN187 PT (16:57)
[2023-08-11] MEDS ORDERED: MIRALAX17 GM PT (16:58)
[2023-08-11] MEDS ORDERED: DULCOLAX400 MG/5 M PT (16:59)
--- NOTE | 2023-08-11 17:25 | NUR ---
DISCHARGE SUMMARY: DISCHARGE PAPERWORK COLLECTED FOR EMS TRANSPORT AND FAXED TO [facility]. FAMILY WAS PRESENT FOR TRANSFER AND COLLECTED PT'S BELONGINGS. REPORT WAS GIVEN TO EMERSON ORTEGA AT [facility] ON THE PATIENT AND ORDER FOR TUBE FEEINGS FAXED TWICE AND GONE OVER VERBALLY OVER THE PHONE. THE PT WAS TRANSPORTED VIA GURNEY AND DID NOT DISPLAY ANY SIGNS OR SYMPTOMS OF DISTRESS DURING DISCHARGE.
== END 2023-08-11 14:41 | DRG 64 ==
LOC: ER 16:46 → ERHOLD 19:53 → MEDS 19:53 → ENPENDDIS 08-11 11:24 → MEDS 08-11 14:41
PROVIDERS: Emergency Medicine; Hospitalist; Internal Medicine; Nurse Practitioner Acute Care; Student in an Organized Health Care Education/Training Program; Surgery; ADMIT Internal Medicine
PROC: 3E02340 Introduction of Influenza Vaccine into Muscle, Percutaneous Approach (ICD-10-PCS; 2023-07-30)
PROC: B24BZZZ Ultrasonography of Heart with Aorta (ICD-10-PCS; 2023-07-31)
PROC: 0DH63UZ Insertion of Feeding Device into Stomach, Percutaneous Approach (ICD-10-PCS; principal; 2023-08-05 11:00)
DX: I63.511 Cerebral infarction due to unspecified occlusion or stenosis of right middle cerebral artery (principal); G92.8 Other toxic encephalopathy; A04.8 Other specified bacterial intestinal infections; G81.94 Hemiplegia, unspecified affecting left nondominant side; M62.82 Rhabdomyolysis; Z11.52 Encounter for screening for COVID-19; R29.810 Facial weakness; E78.5 Hyperlipidemia, unspecified; J45.909 Unspecified asthma, uncomplicated; I10 Essential (primary) hypertension; K25.9 Gastric ulcer, unspecified as acute or chronic, without hemorrhage or perforation; R13.10 Dysphagia, unspecified; E66.9 Obesity, unspecified; Z60.2 Problems related to living alone; Z79.51 Long term (current) use of inhaled steroids; Z68.30 Body mass index [BMI] 30.0-30.9, adult; Z23 Encounter for immunization
CPT/HCPCS: 36415; 70450; 70551; 71045; 74230; 80048; 80053; 80061; 82550; 83036; 83735; 85025; 85027; 88305; 88342; 92526; 92610; 92611; 93005; 93010; 93306; 93880; 94640; 94664; 94760; 96360; 97110; 97110-CQ; 97112; 97162; 97166; 97530; 99285-25; A9270; C9113; J0690; J1170; J1650; J2371; J2405; J2704; J7030; J7120; U0002